=== PATIENT | female | born 1945 | race Asian ===

== ENCOUNTER 2018-06-01 23:55 | Emergency (ER) | payer OTHER ==
[~2018-06-01] VITALS: Ht 157.5 cm; Wt 62.6 kg
[2018-06-02 00:05] VITALS: BP 177/93
--- NOTE | 2018-06-02 00:13 | NUR ---
BIB DAUGHTER. PT PRESENTS TO ED WITH HTN AND N/V X6 HRS. DENIES PAIN. PT STATES LACTOCE INTOLERANCE AND ATE CHEESE TODAY. AFTER WHICH SHE HAD N/V. X4 QUADRANT BOWEL SOUNDS PRESENT. VSS. PT IS HYPERTENSIVE AND TAKES HOME MEDS. POSITIONED IN BED FOR COMFORT. SIDE RAILS UP. ACCOMPANIED BY DAUGHTER. ER MD AWARE. CONTINUE TO MONITOR.
--- NOTE | 2018-06-02 00:13 | NUR ---
PATIENT AMBULATED TO ER BED 10.
[2018-06-02] MEDS ORDERED: ONDANSETRON 4 MG ODT PO ONE (00:35)
--- NOTE | 2018-06-02 01:56 | NUR ---
Patient discharged with v/s stable. Written and verbal after care instructions given and explained. Patient alert, oriented and verbalized understanding of instructions. Ambulatory with steady gait. All questions addressed prior to discharge. ID band removed. Patient advised to follow up with PMD. Rx of Zofran, and Diphenhydramine Hydrochloride given. Patient educated on indication of medication including possible reaction and side effects. Opportunity to ask questions provided and answered.
[2018-06-02 01:57] VITALS: BP 123/68
== END 2018-06-02 01:56 | disposition home or self-care (01) ==
LOC: MED 23:55
DX: T78.1XXA Other adverse food reactions, not elsewhere classified, initial encounter (principal); R11.0 Nausea; I10 Essential (primary) hypertension; X58.XXXA Exposure to other specified factors, initial encounter
CPT/HCPCS: 99283; Q0162; Q0163

== ENCOUNTER 2019-04-10 07:02 | Day surgery (SDC) | payer OTHER ==
[~2019-04-10] VITALS: Ht 154.9 cm; Wt 65.3 kg
[2019-04-10] MEDS ORDERED: fentaNYL 0.05 MG/ML VIAL ONE (10:20)
[2019-04-10] MEDS ORDERED: LIDOCAINE 2% 100 MG/5 ML UJET TP ONE (10:21)
[2019-04-10] MEDS ORDERED: fentaNYL 0.05 MG/ML VIAL IVP ONE (11:15)
== END 2019-04-10 12:20 | disposition home or self-care (01) ==
LOC: MDS 07:02 → MMU 07:02 → MDS 12:20
PROVIDERS: ATTEND Internal Medicine Gastroenterology
DX: Z12.11 Encounter for screening for malignant neoplasm of colon (principal); D12.5 Benign neoplasm of sigmoid colon; M19.90 Unspecified osteoarthritis, unspecified site; E78.00 Pure hypercholesterolemia, unspecified; Z98.890 Other specified postprocedural states; Z79.82 Long term (current) use of aspirin; Z79.899 Other long term (current) drug therapy
CPT/HCPCS: 45385; J3010

== ENCOUNTER 2020-09-06 13:20 | Emergency (ER) | payer OTHER ==
[~2020-09-06] VITALS: Ht 157.5 cm; Wt 61.2 kg
[2020-09-06 13:26] VITALS: BP 121/50
--- NOTE | 2020-09-06 13:32 | NUR ---
Patient wheelchair assisted to bed 12.
--- NOTE | 2020-09-06 13:49 | NUR ---
75 Y/O FEMALE C/O TOP OF LEFT FOOT PAIN & SWELLING X 3 DAYS. DENIES TRAUMA/INJURY. TOP OF L FOOT IS RED, SWOLLEN AND WARM TO TOUCH. CAP REFILL <3 SECONDS, PEDAL PULSES +2. PT HAS FULL ROM AND SENSATION. PT TOOK IBUPROFEN WHICH RELIEVED THE PAIN AND THEN IT CAME BACK. PT A/O X4 WITH EVEN AND UNLABORED RESPIRATIONS. PMH: HTN, HLD, OSTEOPOROSIS, STENT, APPENDECTOMY, GOUT NKDA
--- NOTE | 2020-09-06 13:50 | NUR ---
Patient being evaluated by ROBERT HARRISON at bedside.
--- NOTE | 2020-09-06 13:56 | NUR ---
DR NG AT BEDSIDE EVALUATING PT
--- NOTE | 2020-09-06 14:14 | NUR ---
RAD AT BEDSIDE
[2020-09-06] MEDS ORDERED: CEPH-588 PO (14:45)
[2020-09-06] MEDS ORDERED: INDO-323 PO (14:45)
[2020-09-06 15:06] VITALS: BP 121/50
--- NOTE | 2020-09-06 15:07 | NUR ---
Patient discharged with v/s stable. Written and verbal after care instructions ABOUT BURSITIS AND CELLULITIS given and explained. Patient alert, oriented and verbalized understanding of instructions. Carried with steady gait. All questions addressed prior to discharge. ID band removed. Patient advised to follow up with PMD. Rx of CEPHALEXIN AND INDOMETHACIN given. Patient educated on indication of medication including possible reaction and side effects. Opportunity to ask questions provided and answered.
== END 2020-09-06 15:07 | disposition home or self-care (01) ==
LOC: MED 13:20
DX: M79.672 Pain in left foot (principal); I10 Essential (primary) hypertension; Z79.899 Other long term (current) drug therapy; Z90.49 Acquired absence of other specified parts of digestive tract; Z91.018 Allergy to other foods
CPT/HCPCS: 73630; 99283

== ENCOUNTER 2022-02-24 15:12 | Emergency (ER) | payer MEDICARE, OTHER ==
[~2022-02-24] VITALS: Ht 151.1 cm; Wt 55.8 kg
[~2022-02-24 15:12] MED LIST: CEPH-588 PO; INDO-323 PO
[2022-02-24 15:27] VITALS: BP 128/75
--- NOTE | 2022-02-24 15:29 | NUR ---
triage parts classifier, name not listed, #[id number]
--- NOTE | 2022-02-24 16:11 | NUR ---
Adrián mcduffie in ED - 02/24/22 at 1638 by [facility] STREP CPR, FLU, COVID HERIBERTO SWABS DONE.
--- NOTE | 2022-02-24 16:12 | NUR ---
76 y/o female, tagalog speaking, c/o sore throat for 2 days, 3/10 pain. pmh: stent, hld, htn allergy: seafood, chicken food, shellfish
--- NOTE | 2022-02-24 16:38 | NUR ---
STREP A, FLU, COVID HERIBERTO SWABS DONE.
--- NOTE | 2022-02-24 16:45 | NUR ---
Patient discharged with v/s stable. Written and verbal after care instructions given and explained. Patient alert, oriented and verbalized understanding of instructions. Ambulatory with steady gait. All questions addressed prior to discharge. ID band removed. Patient advised to follow up with PMD. Rx of CEPACOL SORE THROAT, IBU given. Patient educated on indication of medication including possible reaction and side effects. Opportunity to ask questions provided and answered.
[2022-02-24] MEDS ORDERED: IBUP-2213 PO (16:46)
[2022-02-24] MEDS ORDERED: BENZ-300 MM (16:56)
[2022-02-24 17:14] VITALS: BP 122/70
== END 2022-02-24 17:14 | disposition home or self-care (01) ==
LOC: MED 15:12
DX: J02.9 Acute pharyngitis, unspecified (principal); Z20.822 Contact with and (suspected) exposure to COVID-19; E78.5 Hyperlipidemia, unspecified; I10 Essential (primary) hypertension; Z79.899 Other long term (current) drug therapy
CPT/HCPCS: 87081; 99283